=== PATIENT | male | born 1995 | race Caucasian/White ===

== ENCOUNTER 2018-07-20 17:23 | Emergency (ER) | payer BC ==
[~2018-07-20] VITALS: Ht 185.4 cm; Wt 83.5 kg
[2018-07-20 17:40] VITALS: BP 150/71; TEMP 99.3
[2018-07-20 20:39] VITALS: PULSE 76
== END 2018-07-20 20:39 | disposition home or self-care (01) ==
LOC: COL.ER 17:23
DX: S62.306A Unspecified fracture of fifth metacarpal bone, right hand, initial encounter for closed fracture (principal); W22.8XXA Striking against or struck by other objects, initial encounter; Y92.009 Unspecified place in unspecified non-institutional (private) residence as the place of occurrence of the external cause
CPT/HCPCS: Q4021